=== PATIENT | male | born 1995 | race Caucasian/White ===

== ENCOUNTER → 2018-06-08 07:56 | Outpatient (CLI) | payer MEDICAID ==
[2018-06-09 10:24] LABS: IMMUNOGLOBULIN A 145 mg/dL (90-386); IMMUNOGLOBULIN G 986 mg/dL (700-1600); IMMUNOGLOBULIN M 101 mg/dL (20-172)
[2018-06-11 03:12] LABS: IMMUNOGLOBULIN E 7 IU/mL (0-100)
== END | disposition home or self-care (01) ==
LOC: D.RT 07:56
PROVIDERS: Internal Medicine Pulmonary Disease
DX: J45.909 Unspecified asthma, uncomplicated (principal)

== ENCOUNTER 2020-03-15 02:17 | Emergency (ER) | payer OTHER ==
[~2020-03-15] VITALS: Ht 177.8 cm; Wt 61.4 kg
[2020-03-15 02:27] VITALS: BP 127/84; Ht 177.8 cm; Wt 61.4 kg
[2020-03-15] MEDS ORDERED: KEFLEX500 MG PO (03:39)
== END 2020-03-15 04:05 | disposition home or self-care (01) ==
LOC: D.ER 02:17
DX: S61.216A Laceration without foreign body of right little finger without damage to nail, initial encounter (principal); S61.214A Laceration without foreign body of right ring finger without damage to nail, initial encounter; W25.XXXA Contact with sharp glass, initial encounter; Y93.9 Activity, unspecified; Y92.9 Unspecified place or not applicable